=== PATIENT | male | born 1965 | race Caucasian/White ===

== ENCOUNTER 2016-12-21 12:17 | Inpatient (IN) | payer SELFPAY ==
[2016-12-21] MEDS ORDERED: MORPHINE SULFATE INJ 10 MG/ML VIAL IV ONE ×2 (14:19→16:27)
--- NOTE | 2016-12-21 14:23 | ED.PDOC ---
History of Present Illness - General Chief Complaint: General Stated Complaint: bilateral leg discomfort Time Seen by Provider: 12/21/16 12:44 Source: patient Exam Limitations: no limitations - History of Present Illness Initial Comments: Patient is a 51 yo with pancreatic cancer who presents with right leg pain for one week. He says it hurts down the entire leg and he has trouble standing on it because of the pain. It is mildly swollen distally. He has a general "sick" feeling. No focal complaints. He thinks he might have had an URI recently. No other complaints. Timing/Duration: 1 week Severity: moderate Improving Factors: rest Worsening Factors: movement Associated Symptoms: denies symptoms Allergies/Adverse Reactions: Allergies Sulfa Antibiotics Allergy (Verified 07/16/16 14:14) Home Medications: Ambulatory Orders Dexlansoprazole [Dexilant] 60 mg PO DAILY 07/16/16 Furosemide [Lasix Tab] 40 mg PO DAILY PRN 07/16/16 Metoclopramide HCl [Reglan] 10 mg PO QID #120 tab 07/16/16 Morphine Sulfate [Morphine Sulfate ER] 30 mg PO Q4H PRN 07/16/16 Omeprazole Magnesium [Prilosec Otc] 20 mg PO BID 07/16/16 Ondansetron [Zofran Odt] 4 mg PO Q6HR PRN #10 tab 07/16/16 Potassium Chloride [K-Tab] 10 meq PO DAILY 07/16/16 Review of Systems - Review of Systems Constitutional: States: no symptoms reported EENTM: States: no symptoms reported Respiratory: States: no symptoms reported Cardiology: States: no symptoms reported Gastrointestinal/Abdominal: States: no symptoms reported Genitourinary: States: no symptoms reported Musculoskeletal: States: no symptoms reported Skin: States: no symptoms reported Neurological: States: no symptoms reported Endocrine: States: no symptoms reported Hematologic/Lymphatic: States: no symptoms reported Past Medical History (General) - Patient Medical History Hx Seizures: No Hx Stroke: No Hx Dementia: No Hx Asthma: No Hx of COPD: Yes Hx Cardiac Disorders: No Hx Congestive Heart Failure: No Hx Pacemaker: No Hx Hypertension: No Hx Thyroid Disease: No Hx Diabetes: No Hx Gastroesophageal Reflux: Yes Hx Renal Disease: Yes - stones Hx Cancer: Yes - pancreatic Hx of HIV: No Hx Hepatitis C: Yes - active Hx MRSA: Yes - Finger 2008 MRSA Source:: Wound - Vaccination History Hx Tetanus, Diphtheria Vaccination: No Hx Influenza Vaccination: No - 2016 Hx Pneumococcal Vaccination: No - Social History Hx Tobacco Use: Yes Family Medical History - Family History Father Family History: No Known Living Status: Still Living Physical Exam - Physical Exam General Appearance: Alert Progress - Progress Progress: 12/21/16 16:29 Morphine 4 mg x two. wbc 17.7 CTA showed PE in right lower lobe. Patient given Lovenox 65 mg sq x one and admitted. Departure - Departure Clinical Impression: Pulmonary embolism Disposition: Admit Patient Condition: Fair Departure Forms: ED Discharge - Pt. Copy, Patient Portal Self Enrollment Diet: other - as per hospitalist Activity: increase activity as tolerated Home Medications: Ambulatory Orders Dexlansoprazole [Dexilant] 60 mg PO DAILY 07/16/16 Furosemide [Lasix Tab] 40 mg PO DAILY PRN 07/16/16 Metoclopramide HCl [Reglan] 10 mg PO QID #120 tab 07/16/16 Morphine Sulfate [Morphine Sulfate ER] 30 mg PO Q4H PRN 07/16/16 Omeprazole Magnesium [Prilosec Otc] 20 mg PO BID 07/16/16 Ondansetron [Zofran Odt] 4 mg PO Q6HR PRN #10 tab 07/16/16 Potassium Chloride [K-Tab] 10 meq PO DAILY 07/16/16
--- NOTE | 2016-12-21 14:38 | RAD ---
EXAM DESCRIPTION: XR CHEST 1 VIEW CLINICAL HISTORY: 51 y/o M, leukocytosis COMPARISON: None TECHNIQUE: Frontal radiograph of the chest. FINDINGS: The lungs are clear. The heart is normal in size. There is no pneumothorax or pleural effusion. There is no acute fracture. IMPRESSION: No acute cardiopulmonary abnormality. Electronically signed by: Jere Banks MD 12/21/2016 14:36
--- NOTE | 2016-12-21 16:27 | CT ---
EXAM DESCRIPTION: CT CHEST ANGIOGRAPHY WITH IV CONTRAST CLINICAL HISTORY: elevated d-dimer, cancer, swollen right leg COMPARISON: None Available. TECHNIQUE: Contiguous axial images of the chest were obtained from the thoracic inlet to the level of the upper abdomen after the administration of intravenous contrast followed by reconstruction images. Volume rendering images were performed. FINDINGS: The esophagus is distended with presumed food and liquid material. Visualized stomach is also distended. There is a filling defect within the branches of the right lower lung, image 41 compatible with pulmonary emboli. Subsegmental branches were not well opacified. No other discrete filling defect is visualized. There is an enhancing versus dense mass at the right paratracheal level and right hilum compatible with enlarged lymph nodes/metastatic disease. Mildly enlarged lymph nodes within the left hilum also visualized. There is focal mass within the anterior right hepatic parenchyma measuring approximately 3.7 cm which could be secondary to malignancy. Clinical history indicates cancer. Prior examinations are not available. There is no pericardial or pleural fluid collection. There is no pneumothorax. There are scattered emphysematous changes. Focal opacity within the anterior right upper lung could be secondary to postradiation changes, malignancy versus atelectasis not excluded. Recommend followup. Linear opacities within the lungs may represent scar versus subsegmental atelectasis. There are areas of increased ground-glass opacity within the periphery of the left lung which are nonspecific but could be related to small airway disease. Other etiologies not excluded. Recommend followup. Loss of the normal fat planes could be secondary to anasarca versus cachexia. IMPRESSION: Findings compatible with acute pulmonary emboli at the level of the right lower lung. Enlarged lymph nodes and hepatic mass compatible with metastatic disease. Remaining findings as described. Dr. Boateng was notified of the findings at the time of dictation. Electronically signed by: Ej Sutton 12/21/2016 16:26
[2016-12-21] MEDS ORDERED: SODIUM CHLORIDE 0.9% (FLUSH) 10 ML SYG IV PRN (16:36)
[2016-12-21] MEDS ORDERED: ONDANSETRON INJ 4 MG/2 ML VIAL IV PRN (16:41)
[2016-12-21] MEDS ORDERED: ACETAMINOPHEN 325 MG TAB PO PRN (16:41)
[2016-12-21] MEDS ORDERED: ENOXAPARIN SODIUM 60 MG/0.6 ML SYG SUBCU ONE ×2 (16:59→17:56)
[2016-12-21] MEDS ORDERED: IV SET AND CAP CHANGE INJ INJ SCH (17:00)
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
[2016-12-21] MEDS ORDERED: HYDROmorphone HCL INJ 2 MG/ML VIAL IV ONE (18:12)
[2016-12-21] MEDS ORDERED: cefTRIAXone SODIUM 1 GM VIAL ONE (18:24)
[2016-12-21] MEDS ORDERED: SODIUM CHL 0.9% 50ML MIN-BAG+ 50 ML IVPB ONE (18:24)
[2016-12-21] MEDS ORDERED: LEVALBUTEROL NEBS 1.25 MG/3 ML VIAL NEB PRN (18:26)
[2016-12-21] MEDS ORDERED: cefTRIAXone SODIUM 1 GM in SODIUM CHL 0.9% 50ML MIN-BAG+ 50 ML IVPB SCH (18:30)
[2016-12-21] MEDS: KCL 20MEQ/D5NS 1,000 ML IVS PRN (18:37)
[2016-12-21] MEDS ORDERED: PANTOPRAZOLE SODIUM IV 40 MG VIAL IV SCH (19:00)
[2016-12-21] MEDS ORDERED: SODIUM CHLORIDE 0.9% 250ML 250 ML ONE (19:42)
[2016-12-21] MEDS ORDERED: AZITHROMYCIN IV 500 MG VIAL IVPB ONE (19:43)
[2016-12-21] MEDS: BISACODYL SUPPOSITORY 10 MG PR ONE ×2 (19:48→21:24)
[2016-12-21] MEDS ORDERED: AZITHROMYCIN IV 500 MG in SODIUM CHLORIDE 0.9% 250ML 250 ML IVPB SCH (20:00)
[2016-12-21] MEDS ORDERED: LORazepam 0.5 MG TAB PO PRN (21:56)
[2016-12-21] MEDS ORDERED: diphenhydrAMINE HCL 25 MG CAP PO PRN (21:56)
[2016-12-21] MEDS ORDERED: PROMETHAZINE SUPP 25 MG SUP PR PRN (21:56)
[2016-12-21] MEDS: LEVALBUTEROL NEBS 1.25 MG/3 ML VIAL NEB SCH (23:10)
[2016-12-21] MEDS: HYDROmorphone HCL 2 MG TAB PO PRN (23:26)
[2016-12-22] MEDS: HYDROmorphone HCL 2 MG TAB PO PRN ×3 (03:42→13:01)
[2016-12-22] MEDS ORDERED: ENOXAPARIN SODIUM 60 MG/0.6 ML SYG SUBCU ONE (05:45)
[2016-12-22] MEDS ORDERED: METOCLOPRAMIDE HCL 5 MG TAB ONE (08:54)
[2016-12-22] MEDS ORDERED: METOCLOPRAMIDE HCL 5 MG TAB PO SCH ×2 (09:00→11:30)
[2016-12-22] MEDS: KCL 20MEQ/D5NS 1,000 ML IVS PRN (09:25)
[2016-12-22] MEDS: LEVALBUTEROL NEBS 1.25 MG/3 ML VIAL NEB SCH (09:30)
[2016-12-22] MEDS ORDERED: fentaNYL PATCH 100MCG/HR 1 EA PATCH TD SCH (11:00)
--- NOTE | 2016-12-22 12:11 | US ---
EXAM DESCRIPTION: Venous Doppler sonogram left leg CLINICAL HISTORY: PE ; Metastatic Pancreatic Cancer DVT pulmonary emboli COMPARISON: None Available. TECHNIQUE: Grayscale color flow and spectral venous doppler sonography left leg FINDINGS: There is thrombus involving the femoral vein and partial thrombus in the popliteal vein. This extends to the junction with the common femoral vein. No compressibility of the thrombosis portions. IMPRESSION: Deep venous thrombosis left leg common femoral and superficial femoral veins to the popliteal junction. Electronically signed by: Adam Christianson MD 12/22/2016 12:09
--- NOTE | 2016-12-22 12:14 | US ---
EXAM DESCRIPTION: Right leg venous Doppler sonogram CLINICAL HISTORY: Metastatic cancer, DVT, pulmonary embolism COMPARISON: None Available. TECHNIQUE: Grayscale color flow and spectral venous doppler sonography right leg FINDINGS: There is extensive thrombus involving the right leg common femoral superficial femoral popliteal and calf veins. This is diffuse occlusive thrombosis. There is partial occlusion common femoral vein with a referral flow. IMPRESSION: Diffuse thrombosis of the right leg deep veins including common femoral superficial femoral popliteal and calf veins Electronically signed by: Adam Christianson MD 12/22/2016 12:12
[2016-12-22] MEDS ORDERED: RIVAROXABAN 15 MG TAB PO ONE (12:35)
[2016-12-22 14:07] VITALS: BP 139/99; TEMP 98.4; O2SAT 90
[2016-12-22] MEDS ORDERED: PANTOPRAZOLE SODIUM TAB 40 MG PO SCH (16:30)
[2016-12-22] MEDS ORDERED: ENOXAPARIN SODIUM 60 MG/0.6 ML SYG SUBCU SCH (17:00)
[2016-12-22] MEDS ORDERED: ZOLPIDEM TARTRATE 10 MG TAB PO SCH (21:00)
[2016-12-22] MEDS ORDERED: HALOPERIDOL TAB 5MG PO SCH (21:00)
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
== END 2016-12-22 14:17 | disposition hospice, home (50) | DRG 175 ==
LOC: ER 12:17 → MS 17:08
PROVIDERS: ADMIT Family Medicine; ATTEND Nurse Practitioner Family
DX: I26.99 Other pulmonary embolism without acute cor pulmonale (principal); J18.9 Pneumonia, unspecified organism; C25.9 Malignant neoplasm of pancreas, unspecified; R64 Cachexia; C78.00 Secondary malignant neoplasm of unspecified lung; C78.7 Secondary malignant neoplasm of liver and intrahepatic bile duct; C78.89 Secondary malignant neoplasm of other digestive organs; I82.413 Acute embolism and thrombosis of femoral vein, bilateral; I82.431 Acute embolism and thrombosis of right popliteal vein; J44.0 Chronic obstructive pulmonary disease with (acute) lower respiratory infection; J44.1 Chronic obstructive pulmonary disease with (acute) exacerbation; E86.0 Dehydration; R09.02 Hypoxemia; B19.20 Unspecified viral hepatitis C without hepatic coma; I10 Essential (primary) hypertension; F17.210 Nicotine dependence, cigarettes, uncomplicated; Z66 Do not resuscitate; Z99.81 Dependence on supplemental oxygen; Z88.2 Allergy status to sulfonamides; Z79.891 Long term (current) use of opiate analgesic; Z79.899 Other long term (current) drug therapy